=== PATIENT | male | born 2000 | race American Indian/Alaskan Native ===

== ENCOUNTER 2019-08-21 14:20 | Emergency (ER) | payer SELFPAY ==
[2019-08-21 15:10] VITALS: BP 128/73
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
--- NOTE | 2019-08-21 19:04 | XRay Report ---
{null, Left forearm-2 views INDICATION: pain and swelling after injury. COMPARISON: None. IMPRESSION: Transversely oriented fracture of the distal diaphysis of the ulna with mild ulnar displ acement of the distal fracture component and overlying soft tissue swelling. No significant DJD. Signer Name: Kaden Hogue MD Signed: 08/21/2019 7:00 PM Workstation Name: [id number] }
== END 2019-08-21 19:38 | disposition home or self-care (01) ==
LOC: EDBD → ED 14:20
DX: S52.692A Other fracture of lower end of left ulna, initial encounter for closed fracture (principal); X58.XXXA Exposure to other specified factors, initial encounter; Y93.89 Activity, other specified; Y92.89 Other specified places as the place of occurrence of the external cause; Y99.8 Other external cause status